=== PATIENT | male | born 1970 | race Caucasian/White ===

== ENCOUNTER 2017-10-02 22:47 | Inpatient (IN) ==
--- NOTE | 2017-10-02 22:54 | Emergency Department Note ---
Disposition Clinical Impression: UTI (urinary tract infection) Qualifiers: Urinary tract infection type: site unspecified Hematuria presence: without hematuria Qualified Code(s): N39.0 - Urinary tract infection, site not specified Acute renal failure Qualifiers: Acute renal failure type: unspecified Qualified Code(s): N17.9 - Acute kidney failure, unspecified Disposition: Admitted As Inpatient Condition: Fair Time of Disposition: 03:12 General Adult HPI - General Chief complaint: ED Recheck/Abnormal Lab/Rx Stated complaint: upper right quadrant pain Time Seen by Provider: 10/02/17 22:53 Source: patient Mode of arrival: ambulatory Limitations: no limitations Nursing Notes Reviewed: Yes Vital Signs Reviewed: Yes - History of Present Illness HPI Narrative: Patient is a 47-year-old male with past medical history of recent kidney stones. He presented today as a referral from primary care physician due to concern for acute kidney injury. Patient states that he passed a kidney stone within the past 2 weeks. He had a CT scan that showed remaining right inferior pole nonobstructing 5 mm stone. He states that he has had intermittent pain in the right upper quadrant and right flank for the past month, occasional nausea and vomiting, occasional diarrhea. Denies any fevers, dysuria, hematuria, chest pain, shortness of breath, change in bowel habits.. He had basic labs drawn by primary care physician today, primary care physician called with concern for creatinine now in the 6 range, previous was in 1's range. GFR was 11. Pain Scale: 5 - Related Data Home Medications Medication Instructions Recorded Confirmed Aripiprazole [Abilify] 5 mg PO 10/28/15 Gabapentin [Neurontin] 300 mg PO HS 10/28/15 10/28/15 lamoTRIgine [Lamictal] 100 mg PO HS 10/28/15 10/28/15 Previous Rx's Medication Instructions Recorded Ibuprofen [Motrin] 400 mg PO Q8HR #30 tablet 10/28/15 Naproxen [Naprosyn] 500 mg PO BID PRN #20 tablet 04/26/16 Clindamycin [Cleocin] 150 mg PO Q6HR #7 capsule 09/21/16 Ibuprofen [Motrin] 800 mg PO Q8HR #30 tablet 09/21/16 OxyCODONE Immed Rel [Roxicodone 5 5 mg PO Q4HR PRN #24 tablet 07/28/17 MG] Cephalexin [Keflex] 500 mg PO TID #30 capsule 08/07/17 HYDROcodone/Acet 5/325 mg [[place] 1 tab PO Q4H PRN 2 Days #10 tab 08/07/17 5-325 mg] Hyoscyamine SL [Levsin SL] 0.125 mg SL Q4HR #30 tab.subl 08/07/17 Tamsulosin HCl [Flomax] 0.4 mg PO DAILY #5 cap.er.24h 08/07/17 Citalopram Hydrobromide [Celexa] 10 mg PO DAILY #14 tab 08/20/17 Allergies Allergy/AdvReac Type Severity Reaction Status Date / Time Amoxicillin AdvReac Hives Verified 10/02/17 22:54 Penicillins AdvReac Hives Verified 10/02/17 22:54 All systems ED: reviewed and negative except as stated. Constitutional: Denies: fever Cardiovascular: Denies: chest pain Gastrointestinal: Reports: abdominal pain, nausea, vomiting Genitourinary: Denies: urgency, dysuria, frequency, hematuria, discharge Musculoskeletal: Reports: back pain (right flank pain) Neurological: Denies: headache, weakness, numbness Past Medical History - Past Medical History Attestation: Yes The following information was validated with the patient. Source: patient Medical history: Reports: arthritis Psychiatric history: Reports: anxiety, bipolar, depression - Social History Smoking Status: Current every day smoker Smokeless Tobacco Status: No Alcohol use: Reports: none Drug use: Reports: none Physical Exam - General Limitations: no limitations General appearance: alert, in no apparent distress - Head Head exam: atraumatic, normocephalic, normal inspection - Eye Eye exam: Present: normal appearance, PERRL, EOMI - ENT ENT exam: normal exam, normal oropharynx, mucous membranes moist - Neck Neck exam: Present: normal inspection, full ROM, trachea midline - Chest Chest inspection: Present: normal inspection, symmetric chest wall rise - Respiratory Respiratory exam: Present: normal lung sounds bilaterally - Cardiovascular Cardiovascular exam: Present: regular rate, normal rhythm, normal heart sounds - Abdominal Exam Abdominal exam: Present: soft, tenderness (mild RUQ and LUQ tenderness). Absent : distention, guarding, rebound, rigidity, Hollingsworth's sign, Rovsing's sign, tenderness at McBurney's Point - Extremities Exam Extremities exam: Present: normal inspection, full ROM. Absent: tenderness, pedal edema - Neurological Exam Neurological exam: Present: alert, oriented X3 - Psychiatric Psychiatric exam: Present: normal affect, normal mood - Skin Skin exam: Present: warm, dry, intact, normal color Course Course Narrative: Patient was mildly hypertensive. Otherwise, the rest of the vitals within normal limits. Physical exam showed mild right upper quadrant and left upper quadrant tenderness. Otherwise, the rest of the physical exam was fairly benign. Labs are being repeated at this time. Urinalysis shows possible UTI. KUB showed no definite calculus. Patient was given normal saline bolus. 03:12 KUB showed no definite radiopaque calculus. CT abdomen and pelvis was discussed with the patient, discussed radiation risks, he was agreeable with obtaining CT scan for reevaluation of right sided kidney stone. There is a calculus in the right kidney without hydronephrosis or distal calculi. Repeat labs here show creatinine of 6.8. Potassium within normal limits at this time, no need for stat dialysis. We will need to admit the patient for further care for acute renal failure, nephrology consult, fluids. Urinalysis also shows possible UTI. Patient started on Rocephin. KUB X-Ray 10/02/17 23:41 IMPRESSION: No definite radiopaque calculus. D/ / Eulogio Greco MD / Eulogio Greco MD Interpreting Provider: Eulogio Greco MD Abdomen/Pelvis CT 10/03/17 01:06 IMPRESSION: 1. Calculus in the right kidney without hydronephrosis or distal calculi. 2. Cholelithiasis without CT evidence for acute cholecystitis. D/ / Eulogio Greco MD / Eulogio Greco MD Interpreting Provider: Eulogio Greco MD X-Ray 10/02/17 23:41 IMPRESSION: No definite radiopaque calculus. D/ / Eulogio Greco MD / Eulogio Greco MD Interpreting Provider: Eulogio Greco MD Vital Signs Temperature 98.1 F 10/02/17 22:48 Pulse Rate 59 10/02/17 22:48 Respiratory Rate 19 10/02/17 22:48 Blood Pressure 139/72 10/02/17 22:48 O2 Sat by Pulse Oximetry 96 10/02/17 22:48 Temperature 98.2 F 10/03/17 04:15 Pulse Rate 55 10/03/17 04:15 Respiratory Rate 16 10/03/17 04:15 Blood Pressure 135/75 10/03/17 04:15 O2 Sat by Pulse Oximetry 99 10/03/17 04:15 Oxygen Delivery Oxygen Delivery Room Air Medical Decision Making - MDM Narrative Medical decision making narrative: Patient was mildly hypertensive. Otherwise, the rest of the vitals within normal limits. Physical exam showed mild right upper quadrant and left upper quadrant tenderness. Otherwise, the rest of the physical exam was fairly benign. Labs are being repeated at this time. Urinalysis shows possible UTI. KUB showed no definite calculus. Patient was given normal saline bolus. 03:12 KUB showed no definite radiopaque calculus. CT abdomen and pelvis was discussed with the patient, discussed radiation risks, he was agreeable with obtaining CT scan for reevaluation of right sided kidney stone. There is a calculus in the right kidney without hydronephrosis or distal calculi. Repeat labs here show creatinine of 6.8. Potassium within normal limits at this time, no need for stat dialysis. We will need to admit the patient for further care for acute renal failure, nephrology consult, fluids. Urinalysis also shows possible UTI. Patient started on Rocephin. - Medical Records Medical records reviewed: Yes I reviewed the patient's medical records. - Lab Data Lab results reviewed: Yes I reviewed the patient's lab results. Result diagrams: 10/02/17 23:01 10/02/17 23:01 Lab Results 10/02/17 10/02/17 10/03/17 Range/Units 23:01 23:01 00:11 WBC 15.1 H (4.3-11.1) K/mcL RBC 3.95 L (4.19-5.50) M/mcL Hgb 12.2 L (12.9-16.9) g/dL Hct 34.9 L (37.5-50.1) % MCV 88.4 (83.0-100.0) fL MCH 30.9 (28.0-33.3) pg MCHC 35.0 (31.6-35.5) g/dL RDW 12.5 (11.5-14.5) % Plt Count 233 (140-400) K/mcL MPV 12.8 H (9.4-12.4) fL Immature Gran % 0.4 (0-4) % Seg Neutrophils % 74.0 % Lymphocytes % 18.2 % Monocytes % 5.4 % Eosinophils % 1.6 % Basophils % 0.4 % Neutrophils # 11.2 H (1.6-8.9) K/mcL Lymphocytes # 2.8 (0.6-4.6) K/mcL Monocytes # 0.8 (0.0-1.3) K/mcL Eosinophils # 0.2 (0.0-0.6) K/mcL Basophils # 0.1 (0.0-0.2) K/mcL Sodium 135 L (136-145) mEq/L Potassium 3.5 (3.5-5.1) mEq/L Chloride 106 (98-107) mEq/L Carbon Dioxide 17 L (23-29) mEq/L BUN 59 H (6-20) mg/dL Creatinine 6.80 H (0.70-1.30) mg/dL Est GFR ( Amer) 11 L (> 60) Est GFR (Non-Af Amer) 9 L (> 60) BUN/Creatinine Ratio 9 (6-26) Glucose 87 (70-105) mg/dL Calculated Osmolality 296 (280-300) Calcium 9.6 (8.6-10.3) mg/dL Urine Color Yellow (Yellow) Urine Clarity Cloudy A (Clear) Urine pH 6.0 (5.0-8.0) pH Units Ur Specific [place] < 1.005 L (1.010-1.025) Urine Protein Trace (Neg-Trace) mg/dL Urine Glucose (UA) Normal (Normal) mg/dL Urine Ketones Negative (Negative) mg/dL Urine Blood Small H (Negative) Urine Nitrite Negative (Negative) Urine Bilirubin Negative (Negative) Urine Urobilinogen Normal (Normal) mg/dL Ur Leukocyte Esterase Large H (Negative) Urine Microscopic RBC 0-3 (0-3) per hpf Urine Microscopic WBC 3-5 H (0-3) per hpf Ur Squamous Epith Cells Moderate H (None-Few) per lpf Urine Bacteria Few (None-Few) per hpf Ur Culture Indicated? YES A (NO) - Radiology Data Radiology results reviewed: Yes I reviewed the patient's radiology results. KUB X-Ray 10/02/17 23:41 IMPRESSION: No definite radiopaque calculus. D/ / Eulogio Greco MD / uElogio Greco MD Interpreting Provider: Eulogio Greco MD Abdomen/Pelvis CT 10/03/17 01:06 IMPRESSION: 1. Calculus in the right kidney without hydronephrosis or distal calculi. 2. Cholelithiasis without CT evidence for acute cholecystitis. D/ / Eulogio Greco MD / Eulogio Greco MD Interpreting Provider: Eulogio Greco MD S.B.A.R. - S.B.A.R. Situation: Demographics, MOA Background: Presenting Complaint, Relevant PMH, Meds, & Allergies Assessment: Vital Signs, Course and respsone to treatment, Exam Concerns, Patient/Family Expectation, Pertinant Lab Results Recommendation: Barrier(s) to disposition, Recommendation based on pending studies, treatments, or consults S.B.A.R. Report Given to: Dr. troncoso Attestation Statement - Attestation Attestation: I, Rajeev Roland, examined this patient and my medical decision-making was reviewed with the FLIGHT MECHANIC/PA/Advanced Practice Nurse/Resident Physician. I agree with the documented findings, disposition and treatment plan as described except to the extent set forth below. 47-year-old presents emergency department for further evaluation of possible acute renal failure. Patient had a history of recent kidney stone, he had outpatient laboratory testing done by his primary care provider is not significant elevation in his creatinine. Patient has some mild abdominal pain during the examination however he is resting comfortably in emergency department. Laboratory results were repeated and he again had elevation of his creatinine. CT did not show evidence of acute urinary obstruction. Patient will be admitted to the hospital for further care and evaluation of his acute renal failure.
[2017-10-02] MEDS ORDERED: 0.9 % Sodium Chloride 1,000 ML IVC ONE (23:21)
[2017-10-03 00:22] LABS: Bilirubin,Urine Negative (Negative); Blood,Urine Small (Negative); Clarity,Urine Cloudy (Clear); Color,Urine Yellow (Yellow); Glucose,Urine (UA) Normal (Normal); Ketones,Urine Negative (Negative); Leukocyte Esterase,Urine Large (Negative); Nitrite,Urine Negative (Negative); Protein,Urine Trace mg/dL (Neg-Trace); Specific Gravity,Urine < 1.005 (1.010-1.025); Urobilinogen,Urine Normal (Normal)
[2017-10-03 00:34] LABS: RBC,Urine 0-3 per hpf (0-3)
[2017-10-03 00:35] LABS: Bacteria,Urine Few per hpf (None-Few); Squamous Epithelial Cell,Urine Moderate per lpf (None-Few)
[2017-10-03 01:20] LABS: Basophils # 0.1 K/mcL (0.0-0.2); Basophils % 0.4 %; Eosinophils # 0.2 K/mcL (0.0-0.6); Eosinophils % 1.6 %; Hematocrit 34.9 % (37.5-50.1); Hemoglobin 12.2 g/dL (12.9-16.9); Immature Granulocytes % 0.4 % (0-4); Lymphocytes # 2.8 K/mcL (0.6-4.6); Lymphocytes % 18.2 %; Mean Corpuscular Hemoglobin 30.9 pg (28.0-33.3); Mean Corpuscular Volume 88.4 fL (83.0-100.0); Mean Platelet Volume 12.8 fL (9.4-12.4); Monocytes # 0.8 K/mcL (0.0-1.3); Monocytes % 5.4 %; Neutrophils # 11.2 K/mcL (1.6-8.9); Platelet Count 233 K/mcL (140-400); Red Blood Count 3.95 M/mcL (4.19-5.50); Red Cell Distribution Width 12.5 % (11.5-14.5)
[2017-10-03 01:30] LABS: Calcium 9.6 mg/dL (8.6-10.3); Potassium 3.5 mEq/L (3.5-5.1)
[2017-10-03] MEDS ORDERED: cefTRIAXone 1,000 MG in Water for inj. (sterile) 20 ML 10 ML IVP ONE (03:11)
[2017-10-03] MEDS ORDERED: 0.9 % Sodium Chloride 1,000 ML IVC ONE (03:21)
[2017-10-03] MEDS ORDERED: 0.9 % Sodium Chloride 1,000 ML IVC SCH (03:30)
[2017-10-03] MEDS: 0.9 % Sodium Chloride 1,000 ML IVC SCH ×5 (03:43→20:01)
[2017-10-03] MEDS ORDERED: Naloxone 0.4 MG/ML INJ IVP PRN (05:14)
--- NOTE | 2017-10-03 05:57 | Internal Med History&Physical ---
Date of Encounter: 10/03/17 Time of Encounter: 05:30 Internal Medicine - H&P: HPI Chief complaint: abnormal lab History of present illness: Mr. Naylor is a 47 year old male with past medical history of nephrolithiasis presented to the ED after being referred by his primary care physician due to abnormal serum creatinine level. His baseline creatinine is around 1.1 but it was noted to be elevated at 6.75 this morning on outpatient lab. He has no specific complaints, denies any fever/chills, N/V, abdominal pain , dysuria, hematuria, or change in bowel habits. No recent medication change or IV contrast use. Denies frequent use of NSAIDs. 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 Denies decrease in urination, frequency, hesistancy, or dribbling. No joint pain or new rash. In the ED, he was afebrile and hemodynamically stable. Labs again demonstrated elevated creatinine of 6.8 with BUN 59. White blood cell count was elevated at 15.1 and urinalysis showed large amount of leukocyte esterase. He was given 2 L of IV fluid boluses, IV Rocephin, and admitted for further management. Past Med Surg Social Fam HX - Past Medical History Medical history: arthritis, kidney stones Additional medical history: Degenerative Disk Psychiatric history: anxiety, bipolar, depression - Past Surgical History Additional surgical history: teeth extraction, R shoulder athroscopy - Social History Smoking Status: Current every day smoker Smokeless Tobacco Status: No Alcohol use: none Drug use: none Internal Medicine - H&P: Meds Aripiprazole [Abilify] 5 mg PO 10/28/15 [History] Gabapentin [Neurontin] 300 mg PO HS 10/28/15 [History] Ibuprofen [Motrin] 400 mg PO Q8HR #30 tablet 10/28/15 [Rx] lamoTRIgine [Lamictal] 100 mg PO HS 10/28/15 [History] Naproxen [Naprosyn] 500 mg PO BID PRN #20 tablet 04/26/16 [Rx] Clindamycin [Cleocin] 150 mg PO Q6HR #7 capsule 09/21/16 [Rx] Ibuprofen [Motrin] 800 mg PO Q8HR #30 tablet 09/21/16 [Rx] OxyCODONE Immed Rel [Roxicodone 5 MG] 5 mg PO Q4HR PRN #24 tablet 09/21/16 [Rx] Cephalexin [Keflex] 500 mg PO TID #30 capsule 08/07/17 [Rx] HYDROcodone/Acet 5/325 mg [[place] 5-325 mg] 1 tab PO Q4H PRN 2 Days #10 tab 08/07 [Rx] Hyoscyamine SL [Levsin SL] 0.125 mg SL Q4HR #30 tab.subl 08/07/17 [Rx] Tamsulosin HCl [Flomax] 0.4 mg PO DAILY #5 cap.er.24h 08/07/17 [Rx] Citalopram Hydrobromide [Celexa] 10 mg PO DAILY #14 tab 08/20/17 [Rx] 3 Allergy/AdvReac Type Severity Reaction Status Date / Time Amoxicillin AdvReac Hives Verified 10/02/17 22:54 Penicillins AdvReac Hives Verified 10/02/17 22:54 All Systems PM: A 10-system review of systems was performed and is negative for pertinent findings except as documented above in the HPI. - Constitutional Vitals: Temp Pulse Resp BP Pulse Ox 98.2 F 55 16 135/75 99 10/03/17 04:15 10/03/17 04:15 10/03/17 04:15 10/03/17 04:15 10/03/17 04:15 Exam: General: Alert and oriented HEENT:EOM, pupils equal, round, and reactive. Cardiovascular:Normal S1 & S2, no murmurs or gallops. No JVD. Pulse regular. Lungs:Normal breath sounds, no wheezes or crackles. Abdomen:Soft, non-tender, no rigidity. Extremities:No deformity, no edema or tenderness, no joint swelling. Neurological:Normal cognition and motor skills. Skin:Normal color, no rash, no lesions. Pulses:Carotid and radial pulses normal +2. 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 but he also drinks good amount of water continue IVF, repeat BMP later in the afternoon send urine Na, Cr for FeNA calculation urine eosinophils Check CPK treat for UTI in the setting of LOR although he does not endorse much symptoms nephrology consult placed in the ED Qualifiers: Acute renal failure type: unspecified Qualified Code(s): N17.9 - Acute kidney failure, unspecified (2) UTI (urinary tract infection) Current Visit: Yes Status: Acute Assessment and plan: IV Rocephin Qualifiers: Urinary tract infection type: site unspecified Hematuria presence: without hematuria Qualified Code(s): N39.0 - Urinary tract infection, site not specified (3) Nephrolithiasis Current Visit: Yes Status: Chronic Assessment and plan: Nonobstructing (4) DVT prophylaxis Current Visit: Yes Status: Acute Assessment and plan: SCD - Time Spent With Patient Total time spent is greater than 50% in coordination of care (as documented) at patient's floor/unit and/or counseling patient:
--- NOTE | 2017-10-03 09:14 | Nephrology Consult Note ---
Date of Encounter: 10/03/17 Time of Encounter: 09:01 Assessment and Plan (1) Acute renal failure Current Visit: Yes Status: Acute Initial serum creatinine 6.75 is now 6.8. GFR is 9. Continue IV fluids. Renal dose all medications and avoid nephrotoxins. Strict I&O. Retroperitoneal ultrasound ordered. Serum and urine labs ordered. Encouraged adequate by mouth intake. Qualifiers: Acute renal failure type: unspecified Qualified Code(s): N17.9 - Acute kidney failure, unspecified (2) UTI (urinary tract infection) Current Visit: Yes Status: Acute per primary. Qualifiers: Urinary tract infection type: site unspecified Hematuria presence: without hematuria Qualified Code(s): N39.0 - Urinary tract infection, site not specified (3) Nephrolithiasis Current Visit: Yes Status: Chronic Nonobstructing. History of Present Illness - Reason for Consult Consult date: 10/03/17 Acute Kidney Injury - Chief Complaint LOR per PCP - History of Present Illness Mr. Naylor is a 47-year-old male with a past medical history of nephrolithiasis. He presented to the ED after being referred by his PCP for an elevated serum creatinine. Baseline is approximately 1.1 and it was noted to be 6.75 with the outpatient labs the PCP ordered. Denies fever, chills, nausea , vomiting, and diarrhea. Denies chest pain, shortness of breath. He did pass a kidney stone approximately a week ago and has since been voiding fine. Denies hematuria, flank pain, or dysuria. 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 He does drink often approximately 8-9 bottles of water a shift. He has never seen a glazier apprentice in the past and has never been told he has CKD. He also denies FH of kidney disease or HD. Does admit to taking 2-3 pills of either Naproxen or Aleve twice a day (daily) for chronic back pain. He states he alternates the brands weekly but does take at least 2 doses a day every day. He does drink quite a bit of caffeine nearly 4-5 cans of Pepsi a day. He does smoke 1 1/2 PPD, denies alcohol or illegal drug use. He does live at home with family. LOR is most likely pre-renal and related to dehydration. NS @ 250/hr infusing now. Retroperitoneal ultrasound ordered. Urine and serum labs ordered to rule out other processes. Past Med Surg Social Fam HX - Past Medical History Medical history: arthritis, kidney stones Additional medical history: Degenerative Disk Psychiatric history: anxiety, bipolar, depression - Past Surgical History Additional surgical history: teeth extraction, R shoulder athroscopy - Social History Smoking Status: Current every day smoker Smokeless Tobacco Status: No Alcohol use: none Drug use: none Medications and Allergies Aripiprazole [Abilify] 5 mg PO 10/28/15 [History] Gabapentin [Neurontin] 300 mg PO HS 10/28/15 [History] Ibuprofen [Motrin] 400 mg PO Q8HR #30 tablet 10/28/15 [Rx] lamoTRIgine [Lamictal] 100 mg PO HS 10/28/15 [History] Naproxen [Naprosyn] 500 mg PO BID PRN #20 tablet 04/26/16 [Rx] Clindamycin [Cleocin] 150 mg PO Q6HR #7 capsule 09/21/16 [Rx] Ibuprofen [Motrin] 800 mg PO Q8HR #30 tablet 09/21/16 [Rx] OxyCODONE Immed Rel [Roxicodone 5 MG] 5 mg PO Q4HR PRN #24 tablet 09/21/16 [Rx] Cephalexin [Keflex] 500 mg PO TID #30 capsule 08/07/17 [Rx] HYDROcodone/Acet 5/325 mg [[place] 5-325 mg] 1 tab PO Q4H PRN 2 Days #10 tab 08/07 [Rx] Hyoscyamine SL [Levsin SL] 0.125 mg SL Q4HR #30 tab.subl 08/07/17 [Rx] Tamsulosin HCl [Flomax] 0.4 mg PO DAILY #5 cap.er.24h 08/07/17 [Rx] Citalopram Hydrobromide [Celexa] 10 mg PO DAILY #14 tab 08/20/17 [Rx] 3 Allergy/AdvReac Type Severity Reaction Status Date / Time Amoxicillin AdvReac Hives Verified 10/02/17 22:54 Penicillins AdvReac Hives Verified 10/02/17 22:54 Review of Systems ROS unobtainable: other (as per HPI) Exam - Vital Signs Vital signs: Initial Vital Signs Temp Pulse Resp BP Pulse Ox 98.1 F 59 19 139/72 96 10/02/17 22:48 10/02/17 22:48 10/02/17 22:48 10/02/17 22:48 10/02/17 22:48 Vital Signs - Last 8 Hours Temp Pulse Resp BP Pulse Ox 10/03/17 07:33 98.0 F 54 19 118/70 96 Intake and Output 10/02/17 10/03/17 10/03/17 23:59 07:59 15:59 Intake Total 1000 / 1000 Balance 1000 / 1000 Intake: IV Fluids 1000 / 1000 0.9 % Sodium Chloride 1,000 ML 1000 / 1000 @ 250 mls/hr IVC .Q4H [facility] Rx#: [id number] - General Appearance General appearance: well-developed, well-nourished EENT: ATNC, hearing intact, vision intact Neck: supple Respiratory: clear Cardiology: no edema, normal S1, normal S2 Gastrointestinal: normoactive bowel sounds, no tenderness, no guarding Integumentary: no rash, warm and dry Neurologic: alert and oriented x3 Psychiatric: mood/affect appropriate, cooperative Results - Lab Results 10/02/17 23:01 10/02/17 23:01 Most recent lab results Calcium 9.6 mg/dL (8.6-10.3) 10/02/17 23:01 Consult Discharge Plan - Plan Referrals: Rajeev Barajas [Primary Care Provider] -
[2017-10-03 10:02] LABS: Uric Acid 5.8 mg/dL (2.3-7.6)
[2017-10-03] MEDS: Nicotine 21 MG PATCH.TD24 TD SCH (10:27)
[2017-10-03 11:31] LABS: Calcium 8.8 mg/dL (8.6-10.3); Potassium 3.3 mEq/L (3.5-5.1)
[2017-10-03 13:43] LABS: Calcium 8.7 mg/dL (8.6-10.3); Potassium 3.6 mEq/L (3.5-5.1)
--- NOTE | 2017-10-03 15:07 | Internal Med Progress Note ---
<AimeCourtney Talon - Last Filed: 10/03/17 17:02> Hospitalist Progress Note - Encounter Date of Encounter: 10/03/17 Time of Encounter: 09:00 - Subjective Interval History: Hospital day 1, Mr. Naylor is a 47 year old male being treated for acute kidney injury and urinary tract infection. Currently, he complains of constant dull abdominal pain, in RUQ, RLQ and RLQ. He also complains CVA tenderness bilaterally. He states that the pain is 3/10 and increases to sharp and stabbing when he moves. He also complains of headache at base of skull which is at baseline and denies any neurological signs or symptoms. He denies any fever or chills, chest pain, shortness of breath, dysuria or frequency, diarrhea or constipation at this time. He states that he has had nausea and vomiting for the past month since last kidney stone, but it seems to have resolved at time of interview. - Exam Vitals: Temp Pulse Resp BP Pulse Ox 97.7 F 54 18 118/74 95 10/03/17 11:36 10/03/17 07:33 10/03/17 11:36 10/03/17 11:36 10/03/17 11:36 Exam: General: Resting comfortably, in no acute distress, AAOx3, pleasant HEENT: Normocephalic, atraumatic, EOMI, PERRL, mucus membranes moist. Neck supple, trachea midline, no cervical lymphadenopathy. Cardio: RRR, no murmurs, rubs or gallops. Normal S1, S2. No carotid bruits. Pulmonary: No wheezes, rales or rhonchi. No accessory respiratory muscle use. Abdomen: Tenderness to palpation in RUQ, LUQ, RLQ as well as CVA tenderness bilaterally. Positive Hollingsworth sign in RUQ, tenderness in RLQ diffuse and doesn' t localize to McBurney's point. No suprapubic tenderness. Soft, non distended , normal bowel sounds, no guarding, rebound or rigidity. Extremities: Radial and dorsal pedis pulses 2+ and symmetrical, normal capillary refill, no clubbing. No peripheral edema or calf tenderness. Neuro: CN 2-12 intact, no focal deficits. Psych: Normal mood and affect, answers questions appropriately - Assessment and Plan (1) Acute kidney injury Current Visit: Yes Status: Acute Assessment and Plan: Creatinine on admission 6.8, baseline 1.1. GFR of 9. Was started on IV fluids, and repeat labs after 3 L normal saline showed minimal improvement of creatinine now 6.44 and unchanged GFR at 9. History of NSAID use for headache History of nephrolithiasis mid August 2017. 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 CT abdomen/pelvis: 10/02/17 Calculus in the right kidney without hydronephrosis or distal calculi. Cholelithiasis without CT evidence for acute cholecystitis. Continue IV fluids Strict I&O's retroperitoneal U/S pending monitor kidney function closely renal diet (2) UTI (urinary tract infection) Current Visit: Yes Status: Acute Assessment and Plan: History of nephrolithiasis in August 2017, second stone is non obstructing in right inferior pole of kidney U/A positive for blood, leukocyte esterase, WBC, squamous epithelial cells and few bacteria WBC 15.1 Rocephin day 1 Urine culture pending (3) Nephrolithiasis Current Visit: Yes Status: Chronic Assessment and Plan: History of nephrolithiasis in mid August 2017 CT scan shows calculus in right kidney without hydronephrosis. 5mm, non obstructing (4) Nausea Current Visit: Yes Status: Acute Assessment and Plan: States that nausea has improved since starting IV fluids History of nausea and vomiting 2x per day for past month UTI vs Cholelithiasis vs GERD vs nephrolithiasis Review of outpatient labs on 10/02/17 show slight elevation in alkaline phosphatase, normal AST, ALT, lipase Will monitor for improvement with fluid replacement and rocephin for UTI. DVT Prophylaxis: SQ Heparin - Time Spent with Patient Total time spent is greater than 50% in coordination of care (as documented) at patient's floor/unit and/or counseling patient: Internal Medicine: Result - Labs CBC & Chem 7: 10/02/17 23:01 10/03/17 13:06 Labs: BMP 10/03/17 10/03/17 09:25 13:06 Sodium 141 141 Potassium 3.3 L 3.6 Chloride 113 H 112 H Carbon Dioxide 20 L 22 L BUN 60 H 62 H Creatinine 6.62 H 6.44 H Glucose 135 H 125 H Calcium 8.8 8.7 Consult Discharge Plan - Plan Referrals: Rajeev Barajas [Primary Care Provider] - <Remy Bergman - Last Filed: 10/03/17 19:14> Hospitalist Progress Note - Encounter Date of Encounter: 10/03/17 - Exam Vitals: Temp Pulse Resp BP Pulse Ox 98.8 F 70 19 120/66 94 10/03/17 16:28 10/03/17 16:28 10/03/17 16:28 10/03/17 16:28 10/03/17 16:28 - Assessment and Plan (1) UTI (urinary tract infection) Current Visit: Yes Status: Acute (2) Acute renal failure Current Visit: Yes Status: Acute (3) Nephrolithiasis Current Visit: Yes Status: Chronic (4) DVT prophylaxis Current Visit: Yes Status: Acute - Time Spent with Patient Total time spent is greater than 50% in coordination of care (as documented) at patient's floor/unit and/or counseling patient: Internal Medicine: Result - Labs CBC & Chem 7: 10/02/17 23:01 10/03/17 13:06 Labs: BMP 10/03/17 10/03/17 09:25 13:06 Sodium 141 141 Potassium 3.3 L 3.6 Chloride 113 H 112 H Carbon Dioxide 20 L 22 L BUN 60 H 62 H Creatinine 6.62 H 6.44 H Glucose 135 H 125 H Calcium 8.8 8.7 - Attending Attestation Mr Naylor was admitted earlier today with acute renal failure. He has been receiving IV fluids. Appreciate renal input. Agree with assessment and plan as above. <Courtney Salomon - Last Filed: 10/03/17 17:02> (2) UTI (urinary tract infection) Qualifiers: Urinary tract infection type: site unspecified Hematuria presence: with hematuria Qualified Code(s): N39.0 - Urinary tract infection, site not specified; R31.9 - Hematuria, unspecified <Remy Bergman - Last Filed: 10/03/17 19:14> (1) UTI (urinary tract infection) Qualifiers: Urinary tract infection type: site unspecified Hematuria presence: with hematuria Qualified Code(s): N39.0 - Urinary tract infection, site not specified; R31.9 - Hematuria, unspecified (2) Acute renal failure Qualifiers: Acute renal failure type: unspecified Qualified Code(s): N17.9 - Acute kidney failure, unspecified
[2017-10-03] MEDS: ARIPiprazole 10 MG TABLET PO SCH (15:27)
[2017-10-03] MEDS: Gabapentin 100 MG CAPSULE PO SCH ×2 (15:28→20:01)
[2017-10-03] MEDS: *HR* Heparin 5,000 UNIT/ML VIAL SQ SCH (17:01)
[2017-10-03 22:30] LABS: Sodium, Urine 39.6 mEq/L
[2017-10-03 22:31] LABS: Protein/Creatinine Ratio,Urine 0.65 mg/mg (0.00-0.20)
[2017-10-04 05:32] LABS: Basophils # 0.1 K/mcL (0.0-0.2); Basophils % 0.5 %; Eosinophils # 0.3 K/mcL (0.0-0.6); Eosinophils % 2.4 %; Hematocrit 32.8 % (37.5-50.1); Immature Granulocytes % 0.4 % (0-4); Lymphocytes # 3.2 K/mcL (0.6-4.6); Lymphocytes % 25.2 %; Mean Corpuscular HGB Conc 33.5 g/dL (31.6-35.5); Mean Corpuscular Hemoglobin 30.1 pg (28.0-33.3); Mean Corpuscular Volume 89.9 fL (83.0-100.0); Monocytes # 0.9 K/mcL (0.0-1.3); Monocytes % 7.2 %; Neutrophils # 8.2 K/mcL (1.6-8.9); Platelet Count 194 K/mcL (140-400); Red Blood Count 3.65 M/mcL (4.19-5.50); Segmented Neutrophils % 64.3 %
[2017-10-04 05:46] LABS: Albumin 3.3 g/dL (3.5-5.7); Albumin/Globulin Ratio 1.2 (1.1-2.2); Bilirubin,Total 0.3 mg/dL (0.3-1.0); Calcium 8.7 mg/dL (8.6-10.3); Globulin 2.8 g/dL (2.4-3.5); Magnesium 1.8 mg/dL (1.6-2.6); Potassium 4.1 mEq/L (3.5-5.1); Total Protein 6.1 g/dL (6.4-8.9)
[2017-10-04] MEDS: *HR* Heparin 5,000 UNIT/ML VIAL SQ SCH ×2 (06:00→16:16)
[2017-10-04] MEDS: 0.9 % Sodium Chloride 1,000 ML IVC SCH ×3 (06:00→20:47)
[2017-10-04] MEDS: Nicotine 21 MG PATCH.TD24 TD SCH (07:24)
[2017-10-04] MEDS: cefTRIAXone 1,000 MG in Water for inj. (sterile) 20 ML 10 ML IVP SCH (07:24)
[2017-10-04] MEDS: Gabapentin 100 MG CAPSULE PO SCH ×3 (07:24→20:47)
[2017-10-04] MEDS: ARIPiprazole 10 MG TABLET PO SCH (07:24)
--- NOTE | 2017-10-04 08:23 | Nephrology Progress Note ---
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 Renal ultrasound shows: Increased echogenicity of the kidneys which can be seen with medical renal disease. Stone seen on today's CT is not appreciated on ultrasound. Nonspecific debris seen layering within the bladder. Correlate with urinalysis. Urine culture final report is negative, no significant growth (2) Nephrolithiasis Current Visit: Yes Status: Chronic Nonobstructing Subjective Principal diagnosis: LOR Interval history: Patient seen and examined. States he no longer is having any nausea or abdominal pain. Objective - Vital Signs Vital signs: Vital Signs Temp Pulse Resp BP Pulse Ox 10/04/17 08:11 98.5 F 95 20 129/77 97 10/04/17 07:28 98 10/04/17 04:25 97.9 F 50 16 113/73 98 10/03/17 23:04 98.2 F 54 16 100/62 98 10/03/17 16:28 98.8 F 70 19 120/66 94 10/03/17 11:36 97.7 F 18 118/74 95 Intake and Output 10/03/17 10/04/17 10/04/17 23:59 07:59 15:59 Intake Total 1000 / 1000 1000 / 1000 Output Total 900 / 900 Balance 100 / 100 1000 / 1000 Intake: IV Fluids 1000 / 1000 1000 / 1000 0.9 % Sodium Chloride 1,000 ML 1000 / 1000 1000 / 1000 @ 250 mls/hr IVC .Q4H [facility] Rx#: [id number] Output: Urine 900 / 900 Other: Weight 93.6 kg Patient Weight 10/04/17 23:59 Weight 93.6 kg - General Appearance General appearance: Present: well-developed, well-nourished EENT: Present: ATNC, mucous membranes moist, hearing intact, vision intact Neck: Present: supple Respiratory: Present: clear Cardiology: Present: no edema, normal S1, normal S2 Gastrointestinal: Present: no tenderness, no guarding Integumentary: Present: warm and dry Neurologic: Present: alert and oriented x3 Psychiatric: Present: mood/affect appropriate, cooperative - Lab 10/04/17 04:51 10/04/17 04:51 Most recent lab results Calcium 8.7 mg/dL (8.6-10.3) 10/04/17 04:51 Magnesium 1.8 mg/dL (1.6-2.6) 10/04/17 04:51 Urine Creatinine 40 mg/dL 10/03/17 11:45 Urine Sodium 39.6 mEq/L 10/03/17 11:45 Urine Total Protein 26 mg/dL (1-14) H 10/03/17 11:45 Consult Discharge Plan - Plan Referrals: Rajeev Barajas [Primary Care Provider] -
--- NOTE | 2017-10-04 15:28 | Internal Med Progress Note ---
<AimeCourtney Talon - Last Filed: 10/04/17 16:29> Hospitalist Progress Note - Encounter Date of Encounter: 10/04/17 Time of Encounter: 08:00 - Subjective Interval History: Hospital day 2, Mr. Naylor states that the abdominal pain has lessened somewhat today but the pain around his right CVA has increased in severity to 5/ 10. He states that he had one episode of vomiting last night after dinner. He denies nausea, fever, chills, chest pain, shortness of breath weakness, dizziness, dysuria, frequency, or blood in urine. 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 He states that all materials he works with are in the solid state, and no chemicals are involved. - Exam Vitals: Temp Pulse Resp BP Pulse Ox 97.8 F 50 18 134/77 97 10/04/17 11:42 10/04/17 11:42 10/04/17 11:42 10/04/17 11:42 10/04/17 11:42 Exam: General: Resting comfortably, in no acute distress, AAOx3, pleasant HEENT: Normocephalic, atraumatic, EOMI, PERRL, mucus membranes moist. Neck soft , supple, trachea midline, no cervical lymphadenopathy. Cardio: RRR, no murmurs, rubs or gallops. Normal S1, S2. No carotid bruits. Pulmonary: No wheezes, rales or rhonchi. No accessory respiratory muscle use. Abdomen: Tenderness to palpation at RUQ and RLQ, decreased since yesterday. CVA tenderness on right side, increased since yesterday. Soft, non distended, normal bowel sounds, no guarding, rebound or rigidity. No suprapubic tenderness. Extremities: Radial and dorsal pedis pulses 2+ and symmetrical, normal capillary refill, no clubbing. No peripheral edema or calf tenderness. Neuro: CN 2-12 intact, no focal deficits. 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 GFR is 9. Baseline creatinine 1.1. Serum creatinine only slightly improved, currently at 6.36 Retroperitoneal ultrasound 10/03/17: Kidneys demonstrate mildly increased cortical echogenicity which can be seen in the setting of medical renal disease. No evidence of hydronephrosis or intrarenal stones. Stone noted on todays CT is not appreciated on ultrasound. Bladder shows nonspecific debris layering within the bladder. Total input while admitted is 4L, Urine output 900 mL. Will continue to monitor Nephro recs: no need for urgent dialysis at this time, continue IV fluids 0.9% NS Continue to monitor kidney function and electrolytes. Renal diet (2) UTI (urinary tract infection) Current Visit: Yes Status: Acute Assessment and Plan: U/A shows cloudy, small blood, large leukocyte esterase, WBC 3-5 H, squamous epithelial cells moderate H, bacteria few Urine culture 10/04/17: No significant growth Rocephin day 2, will continue for 3 doses. (3) Nephrolithiasis Current Visit: Yes Status: Chronic Assessment and Plan: Passed kidney stone in mid August 2017 Non obstructing, 5mm in right inferior pole currently seen on CT. (4) Nausea Current Visit: Yes Status: Acute Assessment and Plan: Improved. States that nausea is controlled, one episode of vomiting last night. Will continue to monitor for improvement (5) Tobacco dependence Current Visit: Yes Status: Acute Assessment and Plan: Currently smokes 1 ppd Continue nicotine patch 21 mg DVT Prophylaxis: SQ heparin - Time Spent with Patient Total time spent is greater than 50% in coordination of care (as documented) at patient's floor/unit and/or counseling patient: 25 - 35 minutes Internal Medicine: Result - Labs CBC & Chem 7: 10/04/17 04:51 10/04/17 04:51 Labs: Short CBC 10/04/17 Range/Units 04:51 WBC 12.7 H (4.3-11.1) K/mcL Hgb 11.0 L (12.9-16.9) g/dL Hct 32.8 L (37.5-50.1) % Plt Count 194 (140-400) K/mcL Neutrophils # 8.2 (1.6-8.9) K/mcL BMP 10/04/17 04:51 Sodium 143 Potassium 4.1 Chloride 117 H Carbon Dioxide 20 L BUN 57 H Creatinine 6.36 H Glucose 93 Calcium 8.7 Liver Function 10/04/17 Range/Units 04:51 Total Bilirubin 0.3 (0.3-1.0) mg/dL AST 11 L (13-39) Units/L ALT 14 (7-52) Units/L Alkaline Phosphatase 97 (34-104) Units/L Albumin 3.3 L (3.5-5.7) g/dL - Impressions Impressions Retroperitoneum Ultrasound 10/03/17 18:00 IMPRESSION: Increased echogenicity of the kidneys which can be seen with medical renal disease. Stone seen on today's CT is not appreciated on ultrasound. Nonspecific debris seen layering within the bladder. Correlate with urinalysis. D/ / Chu Hernandez MD / Chu Hernandez MD Interpreting Provider: Chu Hernandez MD Consult Discharge Plan - Plan Referrals: Rajeev Barajas [Primary Care Provider] - <Remy Bergman - Last Filed: 10/04/17 18:07> Hospitalist Progress Note - Encounter Date of Encounter: 10/04/17 - Exam Vitals: Temp Pulse Resp BP Pulse Ox 98.0 F 60 19 130/80 99 10/04/17 16:51 10/04/17 16:51 10/04/17 16:51 10/04/17 16:51 10/04/17 16:51 - Assessment and Plan (1) UTI (urinary tract infection) Current Visit: Yes Status: Acute (2) Acute renal failure Current Visit: Yes Status: Suspected (3) Nephrolithiasis Current Visit: Yes Status: Chronic (4) DVT prophylaxis Current Visit: Yes Status: Acute (5) Tobacco abuse Current Visit: Yes Status: Chronic - Time Spent with Patient Total time spent is greater than 50% in coordination of care (as documented) at patient's floor/unit and/or counseling patient: Internal Medicine: Result - Labs CBC & Chem 7: 10/04/17 04:51 10/04/17 04:51 Labs: Short CBC 10/04/17 Range/Units 04:51 WBC 12.7 H (4.3-11.1) K/mcL Hgb 11.0 L (12.9-16.9) g/dL Hct 32.8 L (37.5-50.1) % Plt Count 194 (140-400) K/mcL Neutrophils # 8.2 (1.6-8.9) K/mcL BMP 10/04/17 04:51 Sodium 143 Potassium 4.1 Chloride 117 H Carbon Dioxide 20 L BUN 57 H Creatinine 6.36 H Glucose 93 Calcium 8.7 Liver Function 10/04/17 Range/Units 04:51 Total Bilirubin 0.3 (0.3-1.0) mg/dL AST 11 L (13-39) Units/L ALT 14 (7-52) Units/L Alkaline Phosphatase 97 (34-104) Units/L Albumin 3.3 L (3.5-5.7) g/dL - Impressions Impressions Retroperitoneum Ultrasound 10/03/17 18:00 IMPRESSION: Increased echogenicity of the kidneys which can be seen with medical renal disease. Stone seen on today's CT is not appreciated on ultrasound. Nonspecific debris seen layering within the bladder. Correlate with urinalysis. D/ / Chu Hernandez MD / Chu Hernandez MD Interpreting Provider: Chu Hernandez MD - Attending Attestation I examined this patient and my medical decision-making was reviewed with the Resident Physician on 10/04/17. I agree with the documented findings, disposition and treatment plan as described except to the extent set forth below. Mr Naylor is currently admitted for acute renal failure most likely prerenal. He remains moderate to high risk due to potential for worsening clinical status. Mr Naylor is resting comfortably at this time. Creatinine about the same. No fever or chills. No CP or SOB. Exam alert Comfortable Mucus membranes dry Heart distant No wheeze abd soft I/P 1. Acute renal failure due to ATN 2. Probable UTI - will do 3 days IV abx Further diagnoses and plan as above. <Courtney Salomon - Last Filed: 10/04/17 16:29> (2) UTI (urinary tract infection) Qualifiers: Urinary tract infection type: site unspecified Hematuria presence: with hematuria Qualified Code(s): N39.0 - Urinary tract infection, site not specified <Remy Bergman - Last Filed: 10/04/17 18:07> (1) UTI (urinary tract infection) Qualifiers: Urinary tract infection type: acute cystitis Hematuria presence: with hematuria Qualified Code(s): N30.01 - Acute cystitis with hematuria (2) Acute renal failure Qualifiers: Acute renal failure type: with acute tubular necrosis Qualified Code(s): N17.0 - Acute kidney failure with tubular necrosis
[2017-10-04] MEDS ORDERED: Acetaminophen 325 MG TABLET PO PRN (16:30)
[2017-10-05 04:42] LABS: Basophils # 0.1 K/mcL (0.0-0.2); Basophils % 0.5 %; Eosinophils # 0.3 K/mcL (0.0-0.6); Eosinophils % 2.5 %; Hematocrit 35.7 % (37.5-50.1); Hemoglobin 12.1 g/dL (12.9-16.9); Immature Granulocytes % 0.3 % (0-4); Lymphocytes # 2.5 K/mcL (0.6-4.6); Lymphocytes % 24.9 %; Mean Corpuscular HGB Conc 33.9 g/dL (31.6-35.5); Mean Corpuscular Hemoglobin 30.6 pg (28.0-33.3); Mean Corpuscular Volume 90.4 fL (83.0-100.0); Mean Platelet Volume 11.9 fL (9.4-12.4); Monocytes # 0.6 K/mcL (0.0-1.3); Monocytes % 5.9 %; Neutrophils # 6.6 K/mcL (1.6-8.9); Platelet Count 207 K/mcL (140-400); Red Blood Count 3.95 M/mcL (4.19-5.50); Red Cell Distribution Width 13.1 % (11.5-14.5); Segmented Neutrophils % 65.9 %
[2017-10-05 05:00] LABS: Calcium 8.9 mg/dL (8.6-10.3); Potassium 3.8 mEq/L (3.5-5.1)
[2017-10-05] MEDS: *HR* Heparin 5,000 UNIT/ML VIAL SQ SCH ×2 (05:38→17:21)
[2017-10-05] MEDS: Gabapentin 100 MG CAPSULE PO SCH ×3 (07:25→20:42)
[2017-10-05] MEDS: Nicotine 21 MG PATCH.TD24 TD SCH (07:25)
[2017-10-05] MEDS: ARIPiprazole 10 MG TABLET PO SCH (07:25)
[2017-10-05] MEDS: cefTRIAXone 1,000 MG in Water for inj. (sterile) 20 ML 10 ML IVP SCH (07:26)
[2017-10-05] MEDS: 0.9 % Sodium Chloride 1,000 ML IVC SCH ×2 (07:26→17:22)
[2017-10-05] MEDS: Acetaminophen 325 MG TABLET PO PRN (07:36)
--- NOTE | 2017-10-05 09:33 | Nephrology Progress Note ---
Date of Encounter: 10/05/17 Time of Encounter: 10:05 - Assessment and Plan (1) Acute kidney injury Current Visit: Yes Status: Acute Continues to slowly improve. No need for CRITICAL CARE NURSE. Last night I slowed the rate of the IVF as he's developed a hyperchloremic NAGMA though no appreciable edema. He was taking XS OTC NSAIDs, and was severely prerenal, and developed a UTI, all of which likely induced ATN. Asymptomatic without hyperkalemia. Continue to follow a renal protective strategy Will follow with you. (2) Nephrolithiasis Current Visit: Yes Status: Chronic Nonobstructing (3) NSAID long-term use Current Visit: Yes Status: Acute contributed to his ATN (4) UTI (urinary tract infection) Current Visit: Yes Status: Acute per primary Qualifiers: Urinary tract infection type: acute cystitis Hematuria presence: with hematuria Qualified Code(s): N30.01 - Acute cystitis with hematuria Subjective Principal diagnosis: LOR Interval history: Pt was sleeping, thus limiting the subjective history. Objective - Vital Signs Vital signs: Vital Signs Temp Pulse Resp BP Pulse Ox 10/05/17 07:10 98.1 F 50 17 125/78 98 10/05/17 04:07 98.9 F 60 16 125/76 99 10/05/17 00:22 98.8 F 50 16 123/72 98 10/04/17 18:40 98.3 F 56 16 126/75 98 10/04/17 16:51 98.0 F 60 19 130/80 99 10/04/17 11:42 97.8 F 50 18 134/77 97 Intake and Output 10/04/17 10/05/17 10/05/17 23:59 07:59 15:59 Intake Total 1000 / 1000 240 / 240 Output Total 3600 / 3600 2600 / 2600 Balance -3600 / -3600 -1600 / -1600 240 / 240 Intake: IV Fluids 1000 / 1000 0.9 % Sodium Chloride 1,000 ML 1000 / 1000 @ 100 mls/hr IVC .Q10H [facility] Rx#: [id number] Oral 240 / 240 Output: Urine 3600 / 3600 2600 / 2600 Other: Meal Breakfast Percent of Meal Consumed 90% # Voids 3 Weight 94.619 kg Patient Weight 10/05/17 23:59 Weight 94.619 kg - General Appearance General appearance: Present: appears started age, obese (appears comfortable in no acute distress) EENT: Present: ATNC Respiratory: Present: clear Cardiology: Present: no edema, regular rate, normal S1, normal S2 Gastrointestinal: Present: normoactive bowel sounds. Absent: distended Integumentary: Present: warm and dry Neurologic: Present: disoriented - Lab 10/05/17 04:16 10/05/17 04:16 Most recent lab results Calcium 8.9 mg/dL (8.6-10.3) 10/05/17 04:16 Magnesium 1.8 mg/dL (1.6-2.6) 10/04/17 04:51 Urine Creatinine 40 mg/dL 10/03/17 11:45 Urine Sodium 39.6 mEq/L 10/03/17 11:45 Urine Total Protein 26 mg/dL (1-14) H 10/03/17 11:45 Consult Discharge Plan - Plan Referrals: Rajeev Braajas [Primary Care Provider] -
--- NOTE | 2017-10-05 18:27 | Internal Med Progress Note ---
<AimeCourtney Talon - Last Filed: 10/05/17 18:41> Hospitalist Progress Note - Encounter Date of Encounter: 10/05/17 Time of Encounter: 11:00 - Subjective Interval History: Hospital day 3, Mr. Naylor states that his abdominal pain has completely resolved. He states that his right CVA discomfort is still present but decreasing in severity. He states that he has increasing appetite and denies any nausea or vomiting. He denies any fever, chills, chest pain, shortness of breath, diarrhea, constipation, dysuria, frequency or calf pain. - Exam Vitals: Temp Pulse Resp BP Pulse Ox 97.9 F 51 16 118/71 97 10/05/17 16:35 10/05/17 16:35 10/05/17 16:35 10/05/17 16:35 10/05/17 16:35 Exam: General: Resting comfortably, in no acute distress, AAOx3, pleasant HEENT: Normocephalic, atraumatic, EOMI, PERRL, mucus membranes moist. Neck soft , supple, trachea midline, no cervical lymphadenopathy. Cardio: RRR, no murmurs, rubs or gallops. Normal S1, S2. No carotid bruits. Pulmonary: No wheezes, rales or rhonchi. No accessory respiratory muscle use. Abdomen: CVA tenderness to palpation on right CVA. Soft, non tender, non distended, normal bowel sounds, no guarding, rebound or rigidity. No suprapubic tenderness. Extremities: Radial and dorsal pedis pulses 2+ and symmetrical, normal capillary refill, no clubbing. No peripheral edema or calf tenderness. Neuro: CN 2-12 intact, no focal deficits. Psych: Normal mood and affect, answers questions appropriately - Assessment and Plan (1) Acute kidney injury Current Visit: Yes Status: Acute Assessment and Plan: Kidney function has begun to improve most likely secondary to chronic NSAID use, dehydration and UTI On admission serum creatinine 6.75. GFR is 9. Baseline creatinine 1.1. Creatinine today was 5.5, while GFR was 11 and BUN at 54. Per nephro: decreased rate of IV fluids due to hyperchloremic non anion gap metabolic acidosis. Urine output continues to increase Renal diet Acetaminophen for pain Continue to monitor (2) UTI (urinary tract infection) Current Visit: Yes Status: Acute Assessment and Plan: Positive U/A on admission Urine culture has returned with no significant growth Completed treatment with rocephin for 3 days Will follow up outpatient to ensure resolution of infection (3) Nephrolithiasis Current Visit: Yes Status: Chronic Assessment and Plan: Stable. Passed kidney stone in mid August 2017 Non obstructing, 5mm in right inferior pole currently seen on CT. Denies any increasing CVA tenderness or groin pain. (4) Nausea Current Visit: Yes Status: Acute (5) Tobacco abuse Current Visit: Yes Status: Chronic Assessment and Plan: Continue nicotine patch Assess readiness to quit smoking DVT Prophylaxis: SQ heparin - Time Spent with Patient Total time spent is greater than 50% in coordination of care (as documented) at patient's floor/unit and/or counseling patient: Internal Medicine: Result - Labs CBC & Chem 7: 10/05/17 04:16 10/05/17 04:16 Labs: Short CBC 10/05/17 Range/Units 04:16 WBC 10.0 (4.3-11.1) K/mcL Hgb 12.1 L (12.9-16.9) g/dL Hct 35.7 L (37.5-50.1) % Plt Count 207 (140-400) K/mcL Neutrophils # 6.6 (1.6-8.9) K/mcL BMP 10/05/17 04:16 Sodium 145 Potassium 3.8 Chloride 117 H Carbon Dioxide 18 L BUN 54 H Creatinine 5.50 H Glucose 108 H Calcium 8.9 Consult Discharge Plan - Plan Referrals: Rajeev Barajas [Primary Care Provider] - <Remy Bergman - Last Filed: 10/05/17 19:41> Hospitalist Progress Note - Encounter Date of Encounter: 10/05/17 - Exam Vitals: Temp Pulse Resp BP Pulse Ox 98 F 50 16 137/56 98 10/05/17 19:18 10/05/17 19:18 10/05/17 19:18 10/05/17 19:18 10/05/17 19:18 - Assessment and Plan (1) UTI (urinary tract infection) Current Visit: Yes Status: Acute (2) Acute renal failure Current Visit: Yes Status: Suspected (3) Nephrolithiasis Current Visit: Yes Status: Chronic (4) DVT prophylaxis Current Visit: Yes Status: Acute (5) Tobacco abuse Current Visit: Yes Status: Chronic - Time Spent with Patient Total time spent is greater than 50% in coordination of care (as documented) at patient's floor/unit and/or counseling patient: Internal Medicine: Result - Labs CBC & Chem 7: 10/05/17 04:16 10/05/17 04:16 Labs: Short CBC 10/05/17 Range/Units 04:16 WBC 10.0 (4.3-11.1) K/mcL Hgb 12.1 L (12.9-16.9) g/dL Hct 35.7 L (37.5-50.1) % Plt Count 207 (140-400) K/mcL Neutrophils # 6.6 (1.6-8.9) K/mcL BMP 10/05/17 04:16 Sodium 145 Potassium 3.8 Chloride 117 H Carbon Dioxide 18 L BUN 54 H Creatinine 5.50 H Glucose 108 H Calcium 8.9 - Attending Attestation I examined this patient and my medical decision-making was reviewed with the Resident Physician on 10/05/17. I agree with the documented findings, disposition and treatment plan as described except to the extent set forth below. Mr Naylor is currently admitted for acute renal failure. He remains moderate to high risk due to potential for worsening clinical status. Mr Naylor is feeling OK. No fever or chills. No CP or SOB. Renal function improving slowly. Exam alert Comfortable Mucus membranes dry Heart reg No wheeze abd soft No edema I/P 1. ARF 2. HTN Further diagnoses and plan as above. <Courtney Salomon - Last Filed: 10/05/17 18:41> (2) UTI (urinary tract infection) Qualifiers: Urinary tract infection type: acute cystitis Hematuria presence: with hematuria Qualified Code(s): N30.01 - Acute cystitis with hematuria <Remy Bergman - Last Filed: 10/05/17 19:41> (1) UTI (urinary tract infection) Qualifiers: Urinary tract infection type: acute cystitis Hematuria presence: with hematuria Qualified Code(s): N30.01 - Acute cystitis with hematuria (2) Acute renal failure Qualifiers: Acute renal failure type: with acute tubular necrosis Qualified Code(s): N17.0 - Acute kidney failure with tubular necrosis
[2017-10-06] MEDS: 0.9 % Sodium Chloride 1,000 ML IVC SCH (03:06)
[2017-10-06] MEDS: Acetaminophen 325 MG TABLET PO PRN ×2 (04:40→19:18)
[2017-10-06] MEDS: *HR* Heparin 5,000 UNIT/ML VIAL SQ SCH ×2 (05:36→15:56)
[2017-10-06 05:44] LABS: Calcium 9.1 mg/dL (8.6-10.3); Potassium 3.8 mEq/L (3.5-5.1)
[2017-10-06] MEDS: Gabapentin 100 MG CAPSULE PO SCH ×3 (07:52→20:10)
[2017-10-06] MEDS: ARIPiprazole 10 MG TABLET PO SCH (07:52)
[2017-10-06] MEDS: Nicotine 21 MG PATCH.TD24 TD SCH (07:52)
--- NOTE | 2017-10-06 08:08 | Nephrology Progress Note ---
Date of Encounter: 10/06/17 Time of Encounter: 08:07 - Assessment and Plan (1) Acute kidney injury Current Visit: Yes Status: Acute Continues to slowly improve in terms of renal function with a non-oliguric LOR. No indications for [employer]. He was taking XS OTC NSAIDs, and was severely prerenal, and developed a UTI, all of which likely induced ATN. Asymptomatic without hyperkalemia. Okay to d/c from a nephro perspective. Would recommend BMP in about 3-7 days after discharge with Nephro follow up in the clinic in about 2-4 weeks. Continue to follow a renal protective strategy. He may be at risk for CKD give the severity and duration of this LOR, which I explained to the pt. Thank you. (2) Nephrolithiasis Current Visit: Yes Status: Chronic Noted on renal U/S. I had counseled him for >50% of the encounter to avoid soda pop, and to aim for UOP of about 2L per day. He may need an outpatient LithoLink 24hr urine to assess for guidance on dietary modifications and/or Rx for renal stone prophylaxis. (3) NSAID long-term use Current Visit: Yes Status: Acute To avoid going forward. (4) UTI (urinary tract infection) Current Visit: Yes Status: Resolved As per primary. Qualifiers: Urinary tract infection type: acute cystitis Hematuria presence: with hematuria Qualified Code(s): N30.01 - Acute cystitis with hematuria Subjective Principal diagnosis: LOR Interval history: Pt was s/e and reported feeling well without N/V/D or F/C. His and child were in the room with him. He voiced hope to d/c soon. Objective - Vital Signs Vital signs: Vital Signs Temp Pulse Resp BP Pulse Ox 10/06/17 07:21 97.8 F 55 16 134/71 98 10/06/17 03:53 98.5 F 54 15 111/67 97 10/06/17 00:07 98.6 F 54 14 117/72 100 10/05/17 19:18 98 F 50 16 137/56 98 10/05/17 16:35 97.9 F 51 16 118/71 97 10/05/17 11:44 97.7 F 54 17 114/69 97 Intake and Output 10/05/17 10/06/17 10/06/17 23:59 07:59 15:59 Intake Total 1290 / 1290 2000 / 2000 Output Total 3000 / 3000 2500 / 2500 Balance -1710 / -1710 -500 / -500 Intake: IV Fluids 1000 / 1000 1000 / 1000 0.9 % Sodium Chloride 1,000 ML 1000 / 1000 1000 / 1000 @ 100 mls/hr IVC .Q10H SHIREEN Rx#: [id number] Oral 290 / 290 1000 / 1000 Output: Urine 3000 / 3000 2500 / 2500 Other: Meal Dinner Percent of Meal Consumed 100% Weight 93.531 kg Patient Weight 10/06/17 23:59 Weight 93.531 kg - General Appearance General appearance: Present: well-developed, well-nourished, appears started age EENT: Present: ATNC, PERRL, mucous membranes moist Neck: Present: supple Respiratory: Present: clear Cardiology: Present: no murmurs, no edema, regular rate, regular rhythm, normal S1, normal S2 Gastrointestinal: Present: normoactive bowel sounds, no tenderness, no guarding Integumentary: Present: no rash, warm and dry Neurologic: Present: no focal deficit, no asterixis, alert and oriented x3 Musculoskeletal: Present: no deformities, no erythema, no cyanosis Psychiatric: Present: mood/affect appropriate, cooperative - Lab 10/05/17 04:16 10/06/17 04:47 Most recent lab results Calcium 9.1 mg/dL (8.6-10.3) 10/06/17 04:47 Magnesium 1.8 mg/dL (1.6-2.6) 10/04/17 04:51 Urine Creatinine 40 mg/dL 10/03/17 11:45 Urine Sodium 39.6 mEq/L 10/03/17 11:45 Urine Total Protein 26 mg/dL (1-14) H 10/03/17 11:45 Consult Discharge Plan - Plan Referrals: Rajeev Barajas [Primary Care Provider] -
[2017-10-06] MEDS ORDERED: Ondansetron ODT 4 MG TAB.RAPDIS SL PRN (10:32)
--- NOTE | 2017-10-06 12:54 | Internal Med Progress Note ---
<AimeCourtney Talon - Last Filed: 10/06/17 13:15> Hospitalist Progress Note - Encounter Date of Encounter: 10/06/17 Time of Encounter: 08:00 - Subjective Interval History: Today, hospital day 3, Mr. Naylor states that his headache has resolved, he denies abdominal pain, and states that the right CVA pain is still present. He also admits to nausea occurring about 1 hour after breakfast but no vomiting. A cough is now present, when questioned he states that he has a chronic smoker' s cough that happens intermittently. He denies fever, chills, chest pain, shortness of breath, vomiting, abdominal pain, calf pain, or parathesias. - Exam Vitals: Temp Pulse Resp BP Pulse Ox 98.0 F 68 16 128/78 100 10/06/17 11:40 10/06/17 11:40 10/06/17 11:40 10/06/17 11:40 10/06/17 11:40 Exam: General: Resting comfortably, in no acute distress, AAOx3, pleasant HEENT: Normocephalic, atraumatic, EOMI, PERRL, mucus membranes moist. Neck soft , supple, trachea midline, no cervical lymphadenopathy. Cardio: RRR, no murmurs, rubs or gallops. Normal S1, S2. No carotid bruits. Pulmonary: Rales present in bilateral lung bases, no wheezes or rhonchi. No accessory respiratory muscle use. Abdomen: Right sided CVA tenderness present. Soft, non tender, non distended, normal bowel sounds, no guarding, rebound or rigidity. Extremities: Radial and dorsal pedis pulses 2+ and symmetrical, normal capillary refill, no clubbing. No peripheral edema or calf tenderness. Neuro: CN 2-12 intact, no focal deficits. 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 GFR is 9. Baseline creatinine 1.1. Creatinine currently trending down, is at 4.66 today. Urine output increasing, today was 4100 mL Decreased rate of IV fluids to reduce volume overload, patient had a non productive cough and bilateral rales on exam Continue to monitor kidney function, volume status. (2) UTI (urinary tract infection) Current Visit: Yes Status: Acute Assessment and Plan: Improved U/A positive for UTI on admission Urine culture final read of no significant growth Completed 3 days rocephin (3) Nephrolithiasis Current Visit: Yes Status: Chronic Assessment and Plan: Stable Passed kidney stone in mid August 2017 Non obstructing, 5mm in right inferior pole currently seen on CT (4) Nausea Current Visit: Yes Status: Acute Assessment and Plan: Present for past month since first nephrolithiasis Most likely secondary to uremia Seems to be improving as kidney function resolves Will continue to monitor Zofran PRN (5) Tobacco abuse Current Visit: Yes Status: Chronic Assessment and Plan: Chronic Nicotine patch - Time Spent with Patient Total time spent is greater than 50% in coordination of care (as documented) at patient's floor/unit and/or counseling patient: Internal Medicine: Result - Labs CBC & Chem 7: 10/05/17 04:16 10/06/17 04:47 Labs: BMP 10/06/17 04:47 Sodium 144 Potassium 3.8 Chloride 114 H Carbon Dioxide 22 L BUN 49 H Creatinine 4.66 H Glucose 96 Calcium 9.1 Consult Discharge Plan - Plan Referrals: Rajeev Barajas [Primary Care Provider] - <Remy Bergman - Last Filed: 10/06/17 18:41> Hospitalist Progress Note - Encounter Date of Encounter: 10/06/17 - Exam Vitals: Temp Pulse Resp BP Pulse Ox 97.6 F 51 16 121/76 98 10/06/17 16:14 10/06/17 16:14 10/06/17 16:14 10/06/17 16:14 10/06/17 16:14 - Assessment and Plan (1) UTI (urinary tract infection) Current Visit: Yes Status: Resolved (2) Acute renal failure Current Visit: Yes Status: Suspected (3) Nephrolithiasis Current Visit: Yes Status: Chronic (4) DVT prophylaxis Current Visit: Yes Status: Acute (5) Tobacco abuse Current Visit: Yes Status: Chronic - Time Spent with Patient Total time spent is greater than 50% in coordination of care (as documented) at patient's floor/unit and/or counseling patient: Internal Medicine: Result - Labs CBC & Chem 7: 10/05/17 04:16 10/06/17 04:47 Labs: BMP 10/06/17 04:47 Sodium 144 Potassium 3.8 Chloride 114 H Carbon Dioxide 22 L BUN 49 H Creatinine 4.66 H Glucose 96 Calcium 9.1 - Attending Attestation I examined this patient and my medical decision-making was reviewed with the Resident Physician on 10/06/17. I agree with the documented findings, disposition and treatment plan as described except to the extent set forth below. Mr Naylor is currently admitted for acute renal failure. He remains moderate to high risk due to potential for worsening clinical status. Mr Naylor is doing OK. He is up walking. His creatinine is slowly improving with fluids. No fever or chills. No GI issues. Exam alert Comfortable Mucus membranes dry Heart reg No wheeze Abd soft I/P 1. ARF Further diagnoses and plan as above. <Courtney Salomon - Last Filed: 10/06/17 13:15> (2) UTI (urinary tract infection) Qualifiers: Urinary tract infection type: acute cystitis Hematuria presence: with hematuria Qualified Code(s): N30.01 - Acute cystitis with hematuria <Remy Bergman - Last Filed: 10/06/17 18:41> (1) UTI (urinary tract infection) Qualifiers: Urinary tract infection type: acute cystitis Hematuria presence: with hematuria Qualified Code(s): N30.01 - Acute cystitis with hematuria (2) Acute renal failure Qualifiers: Acute renal failure type: with acute tubular necrosis Qualified Code(s): N17.0 - Acute kidney failure with tubular necrosis
[2017-10-07] MEDS: 0.9 % Sodium Chloride 1,000 ML IVC SCH (03:19)
[2017-10-07 05:41] LABS: Calcium 9.1 mg/dL (8.6-10.3); Potassium 3.7 mEq/L (3.5-5.1)
[2017-10-07] MEDS: *HR* Heparin 5,000 UNIT/ML VIAL SQ SCH (06:08)
[2017-10-07] MEDS: ARIPiprazole 10 MG TABLET PO SCH (08:27)
[2017-10-07] MEDS: Nicotine 21 MG PATCH.TD24 TD SCH (08:27)
[2017-10-07] MEDS: Gabapentin 100 MG CAPSULE PO SCH (08:27)
[2017-10-07] MEDS: Acetaminophen 325 MG TABLET PO PRN (11:00)
[2017-10-07 11:16] VITALS: BP 128/83
--- NOTE | 2017-10-07 13:10 | Discharge Summary ---
<Courtney Salomon - Last Filed: 10/07/17 13:49> - NOTES TO OUTPATIENT PROVIDER Notes to Outpatient Provider: PCP:Please check U/A for resolution of UTI and BMP to ensure continued improvement of renal function. Nephrology: Please evaluate renal function Date of Encounter: 10/07/17 Time of Encounter: 10:00 - Discharge Diagnosis (1) Acute kidney injury Priority: Primary Status: Acute (2) UTI (urinary tract infection) Priority: Secondary Status: Resolved Qualifiers: Urinary tract infection type: acute cystitis Hematuria presence: with hematuria Qualified Code(s): N30.01 - Acute cystitis with hematuria (3) Nephrolithiasis Priority: Secondary Status: Chronic (4) Nausea Priority: Secondary Status: Acute (5) Tobacco abuse Priority: Secondary Status: Chronic Hospital course: Mr. Naylor is a 47 year old male who was found to have elevated creatinine, BUN and decreased GFR at PCP visit. Concerned for acute kidney injury, Mr. Naylor was instructed to present to [facility] for further evaluation and treatment for acute kidney injury 10/02/17. His history is significant for nephrolithiasis in August 2017, after which he continued to have daily nausea and vomiting leading to a dehydrated state, as well as chronic use of NSAID for back and neck pain. 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 Upon arrival to the emergency department, his labs revealed serum creatinine 6.75. GFR is 9. Baseline creatinine 1.1. Imaging was done, CT abdomen/pelvis revealed a calculus in the right kidney without hydronephrosis or distal calculi. Cholelithiasis without CT evidence for acute cholecystitis. Retroperitoneal ultrasound revealed a mildly increased cortical echogenicity without hydronephrosis as well as nonspecific debris within the bladder. U/A was positive for urinary tract infection. Mr. Naylor was started on aggressive IV fluid for rehydration and treatment of prerenal acute kidney injury. He was treated with rocephin for 3 days for the UTI. His renal function has slowly improved and nausea has resolved. He was advised to maintain adequate hydration , stop all NSAID use and follow up with PCP in one week to recheck BMP and U/A as well as follow up with nephrology in two weeks. Discharge discussed with: patient Time spent discussing smoking cessation with patient: more than 10 minutes - Time Spent with Patient Total time spent providing and/or coordinating discharge services: Greater than 30 minutes (36) - Discharge Medications Home Medications: Aripiprazole [Abilify] 20 mg PO DAILY 10/03/17 [History] Gabapentin [Neurontin] 400 mg PO BID 10/03/17 [History] Multivitamin [One Daily Multivitamin] 1 tab PO DAILY 10/03/17 [History] Omeprazole [PriLOSEC] 20 mg PO DAILY 10/03/17 [History] Allergies/Adverse Reactions: 3 Allergy/AdvReac Type Severity Reaction Status Date / Time Amoxicillin AdvReac Hives Verified 10/03/17 10:32 Penicillins AdvReac Hives Verified 10/03/17 10:32 Date of admission: 10/03/17 05:14 Primary care physician: Rajeev Barajas Discharging clinician: Courtney Salomon Anticipated date of discharge: 10/07/17 - Constitutional Vitals: Temp Pulse Resp BP Pulse Ox 97.5 F L 53 16 128/83 99 10/07/17 11:14 10/07/17 11:14 10/07/17 11:14 10/07/17 11:14 10/07/17 11:14 General appearance: Present: A&O X 3, pleasant, no acute distress, answers questions appropriately Exam: Pleasant - Head Head exam: Present: atraumatic, normocephalic - Eye Eye exam: Present: PERRL, conjuntiva pink, sclera anicteric Pupils: Present: PERRL - Neck Neck exam general surgery: Present: supple, trachea midline. Absent: lymphadenopathy, tenderness, thyromegaly - Respiratory Respiratory exam: Present: CTAB. Absent: accessory muscle use, rales, rhonchi, wheezes - Cardiovascular Cardiovascular exam: Present: RRR, +S1, +S2. Absent: diastolic murmur, gallop, rubs, systolic murmur - GI/Abdominal GI/Abdominal exam: Present: normal bowel sounds, soft, no peritoneal signs. Absent: distended, tenderness - Expanded GI/Abdominal Exam GI/Abdominal exam expanded: Absent: Hollingsworth's sign, tenderness at McBurney's Point - Extremities Exam Extremities exam: Present: normal capillary refill, warm, radial pulses palpable and symmetrical. Absent: calf tenderness, cyanotic, pedal edema - Neurological Exam Neurological exam: Present: CN II-XII intact, oriented X3, no focal deficits. Absent: pronater drift, facial droop, speech deficit - Skin Skin exam: Present: dry, intact - Patient Status Disposition: Home, Self-Care Condition: Fair Functional capacity at discharge: independent ambulation Overall status at discharge: patient is progressing back to baseline - Discharge Instructions Follow Up With: Rajeev Barajas [Primary Care Provider] - 10/09/17 9:00 am (With Dr Salomon Have your physician recheck BMP in one week.) Dawson Anna, [Partnered Physician] - ( Please follow up in 2 weeks The office will call you to set up an appointment.) Forms: Inpatient Work/School Release Additional Instructions: Please check U/A for resolution of UTI and BMP to ensure continued improvement of renal function. - Diet and Activity Activity: increase activity as tolerated Diet: advance to your usual diet <Remy Bergman - Last Filed: 10/07/17 17:14> Date of Encounter: 10/07/17 - Discharge Diagnosis (1) UTI (urinary tract infection) Status: Resolved Qualifiers: Urinary tract infection type: acute cystitis Hematuria presence: with hematuria Qualified Code(s): N30.01 - Acute cystitis with hematuria (2) Acute renal failure Priority: Primary Status: Suspected Qualifiers: Acute renal failure type: with acute tubular necrosis Qualified Code(s): N17.0 - Acute kidney failure with tubular necrosis (3) Nephrolithiasis Status: Chronic (4) Tobacco abuse Status: Chronic (5) Dehydration Priority: Secondary Status: Resolved (6) NSAID long-term use Priority: Secondary Status: Acute (7) Nausea Status: Acute Hospital course: Mr. Naylor is a 47 year old male - Time Spent with Patient Total time spent providing and/or coordinating discharge services: 39min Date of admission: 10/03/17 05:14 Primary care physician: Rajeev Barajas - Constitutional Vitals: Temp Pulse Resp BP Pulse Ox 97.5 F L 53 16 128/83 99 10/07/17 11:14 10/07/17 11:14 10/07/17 11:14 10/07/17 11:14 10/07/17 11:14 - Attending Attestation I examined this patient and my medical decision-making was reviewed with the Resident Physician on 10/07/17. I agree with the documented findings, disposition and treatment plan as described except to the extent set forth below. Mr Naylor has been admitted for acute renal failure. It was felt due to NSAIDS and prerenal conditions. He has been slowly improving with hydration. He is now afebrile and ready for discharge home. He will follow up in outpatient clinic and have renal function rechecked. Exam Alert Comfortable Mucus membranes dry Heart reg No wheeze Abd soft No edema Plan D/C home Follow up as scheduled Further diagnoses and plan as above.
--- NOTE | 2017-10-07 13:27 | Nephrology Progress Note ---
Date of Encounter: 10/07/17 Time of Encounter: 11:30 - Assessment and Plan (1) Acute kidney injury Current Visit: Yes Status: Acute SCr continues to improve at 3.61, GFR 18 but not yet at baseline but suspect continued improvement with adequate po fluids Ok to discharge from a renal standpoint as long as BMP recheck within the week and adequate followup whether with pcp and/or nephro Continue to avoid nephrotoxins if possible especially NSAIDs (2) UTI (urinary tract infection) Current Visit: Yes Status: Resolved As per primary. Qualifiers: Urinary tract infection type: acute cystitis Hematuria presence: with hematuria Qualified Code(s): N30.01 - Acute cystitis with hematuria (3) Nephrolithiasis Current Visit: Yes Status: Chronic (4) NSAID long-term use Current Visit: Yes Status: Acute Subjective Principal diagnosis: LOR Interval history: Interim events noted, pt seen and examined feeling quite good and eager to go home. Objective - Vital Signs Vital signs: Vital Signs Temp Pulse Resp BP Pulse Ox 10/07/17 11:14 97.5 F L 53 16 128/83 99 10/07/17 07:24 97.4 F L 52 15 117/71 100 10/07/17 03:39 98.2 F 55 14 113/72 99 10/06/17 23:45 98.5 F 52 15 122/76 98 10/06/17 19:20 98 10/06/17 19:08 98.3 F 58 15 123/75 98 10/06/17 16:14 97.6 F 51 16 121/76 98 Intake and Output 10/06/17 10/07/17 10/07/17 23:59 07:59 15:59 Intake Total 240 / 240 380 / 380 360 / 360 Output Total 1100 / 1100 3650 / 3650 200 / 200 Balance -860 / -860 -3270 / -3270 160 / 160 Intake: IV Fluids 380 / 380 Oral 240 / 240 360 / 360 Output: Urine 1100 / 1100 3650 / 3650 200 / 200 Other: Meal Dinner Lunch Percent of Meal Consumed 100% 100% # Voids 1 3 1 Weight 92.805 kg - General Appearance General appearance: Present: well-developed, well-nourished EENT: Present: ATNC, mucous membranes moist Neck: Present: no JVD, supple Respiratory: Present: clear Cardiology: Present: no edema, normal S1, normal S2 Gastrointestinal: Present: no tenderness, no guarding Integumentary: Present: warm and dry Neurologic: Present: no focal deficit Musculoskeletal: Present: no deformities Psychiatric: Present: mood/affect appropriate, cooperative - Lab 10/05/17 04:16 10/07/17 04:43 Most recent lab results Calcium 9.1 mg/dL (8.6-10.3) 10/07/17 04:43 Magnesium 1.8 mg/dL (1.6-2.6) 10/04/17 04:51 Urine Creatinine 40 mg/dL 10/03/17 11:45 Urine Sodium 39.6 mEq/L 10/03/17 11:45 Urine Total Protein 26 mg/dL (1-14) H 10/03/17 11:45 Consult Discharge Plan - Plan Referrals: Rajeev Barajas [Primary Care Provider] -
== END 2017-10-07 14:30 | disposition home or self-care (01) | DRG 683 ==
LOC: EMEROO 22:47 → 2ANU 22:47 → SUATTDRO 10-03 05:14
PROVIDERS: ADMIT Family Medicine; ATTEND Internal Medicine

== ENCOUNTER 2021-12-17 01:00 | Observation (INO) ==
[2021-12-17] MEDS ORDERED: *HR* FentaNYL (PF) 100 MCG/2 ML VIAL IVP ONE (01:38)
[2021-12-17 02:05] LABS: Basophils # 0.1 K/mcL (0.0-0.2); Basophils % 0.6 %; Eosinophils # 0.1 K/mcL (0.0-0.6); Hematocrit 44.6 % (37.5-50.1); Immature Granulocytes % 0.3 % (0-4); Lymphocytes # 2.1 K/mcL (0.6-4.6); Lymphocytes % 21.1 %; Mean Corpuscular HGB Conc 33.6 g/dL (31.6-35.5); Mean Corpuscular Hemoglobin 32.1 pg (28.0-33.3); Mean Corpuscular Volume 95.5 fL (83.0-100.0); Mean Platelet Volume 10.9 fL (9.4-12.4); Monocytes # 0.9 K/mcL (0.0-1.3); Neutrophils # 6.8 K/mcL (1.6-8.9); Platelet Count 183 K/mcL (140-400); Red Blood Count 4.67 M/mcL (4.19-5.50); Red Cell Distribution Width 13.5 % (11.5-14.5)
[2021-12-17 02:15] LABS: Bilirubin,Urine Negative (Negative); Blood,Urine Small (Negative); Clarity,Urine Clear (Clear); Color,Urine Light-Yellow (Yellow); Glucose,Urine (UA) Normal (Normal); Ketones,Urine Negative (Negative); Leukocyte Esterase,Urine Negative (Negative); Nitrite,Urine Negative (Negative); Protein,Urine Trace mg/dL (Neg-Trace); Specific Gravity,Urine 1.021 (1.010-1.025); Squamous Epithelial Cell,Urine Few per hpf (None-Few); Urobilinogen,Urine Normal (Normal)
[2021-12-17 02:23] LABS: Alanine Aminotransferase 13 Units/L (7-52); Albumin 4.5 g/dL (3.5-5.7); Albumin/Globulin Ratio 1.4 (1.1-2.2); Alkaline Phosphatase 101 Units/L (34-104); Amylase 23 Units/L (29-103); Aspartate Amino Transferase 14 Units/L (13-39); BUN/Creatinine Ratio 8 (6-26); Bilirubin,Direct 0.1 mg/dL (0.0-0.2); Bilirubin,Indirect 0.6 mg/dL (0.0-1.0); Bilirubin,Total 0.7 mg/dL (0.3-1.0); Blood Urea Nitrogen 13 mg/dL (6-20); Calcium 9.8 mg/dL (8.6-10.3); Carbon Dioxide 29 mEq/L (23-29); Chloride 106 mEq/L (98-107); Globulin 3.2 g/dL (2.4-3.5); Glucose 98 mg/dL (70-105); Lipase 15 Units/L (11-82); Osmolality,Calculated 276 (280-300); Potassium 3.5 mEq/L (3.5-5.1); Sodium 133 mEq/L (136-145); Total Protein 7.7 g/dL (6.4-8.9)
[2021-12-17] MEDS ORDERED: 0.9 % Sodium Chloride 1,000 ML IVC ONE (02:34)
[2021-12-17] MEDS ORDERED: Morphine Sulfate 2 MG/ML SYRINGE IVP ONE (02:34)
[2021-12-17 03:14] LABS: Troponin I < 0.03 ng/mL (< 0.04)
[2021-12-17] MEDS ORDERED: Naloxone 0.4 MG/ML INJ IVP PRN (03:33)
[2021-12-17] MEDS ORDERED: Ondansetron 4 MG/2 ML VIAL IVP PRN (03:44)
[2021-12-17] MEDS: 0.9 % Sodium Chloride 1,000 ML IVC SCH ×2 (04:16→11:00)
[2021-12-17 04:34] LABS: Amphetamine Screen,Urine Negative ng/mL (Cutoff=1000); Barbiturate Screen,Urine Negative ng/mL (Cutoff=200); Benzodiazepines Screen,Urine Negative ng/mL (Cutoff=200); Cannabinoid Screen,Urine Positive ng/mL (Cutoff = 50); Cocaine Screen,Urine Negative ng/mL (Cutoff= 300); Opiate Screen,Urine Negative ng/mL (Cutoff=300); Phencyclidine Screen,Urine Negative ng/mL (Cutoff=25)
[2021-12-17 11:02] LABS: INR 1.1; Prothrombin Time 12.7 Seconds (9.4-12.1)
[2021-12-17] MEDS: Nicotine 14 MG PATCH.TD24 TD SCH (13:18)
[2021-12-18 06:55] LABS: Calcium 9.1 mg/dL (8.6-10.3); Potassium 3.9 mEq/L (3.5-5.1)
[2021-12-18] MEDS: Nicotine 14 MG PATCH.TD24 TD SCH (08:27)
[2021-12-18] MEDS ORDERED: 0.9 % Sodium Chloride 1,000 ML IVC SCH ×2 (10:30→14:21)
[2021-12-18] MEDS ORDERED: Clindamycin 900 MG/50 ML 900 MG/50 ML IV.SOLN IVPB ONE ×2 (11:37→11:39)
[2021-12-18] MEDS ORDERED: Ipratropium/Albuterol Neb 3 ML IH ONE (11:48)
[2021-12-18] MEDS ORDERED: *HR* HYDROmorphone PF 0.5 MG/0.5 ML SYRINGE IVP PRN (11:48)
[2021-12-18] MEDS ORDERED: Naloxone 0.4 MG/ML INJ IVP PRN (11:48)
[2021-12-18] MEDS ORDERED: Ondansetron 4 MG/2 ML VIAL IVP PRN ×2 (11:48→14:21)
[2021-12-18] MEDS ORDERED: *HR* Midazolam HCl 2 MG/2 ML VIAL ONE (12:06)
[2021-12-18] MEDS ORDERED: *HR* FentaNYL (PF) 100 MCG/2 ML VIAL ONE (12:06)
[2021-12-18] MEDS ORDERED: *HR* Propofol 200 MG/20 ML VIAL IVP ONE (12:07)
[2021-12-18] MEDS ORDERED: Lidocaine -MPF 2% 2 ML VIAL ONE (12:07)
[2021-12-18] MEDS ORDERED: Ondansetron 4 MG/2 ML VIAL ONE (12:44)
[2021-12-18] MEDS ORDERED: EPHEDrine sulfate 50 MG/10 ML VIAL IVP ONE (12:52)
[2021-12-18 14:21] VITALS: TEMP 97.5
[2021-12-18 16:07] VITALS: BP 119/72; PULSE 73; O2SAT 93
[2021-12-19] MEDS ORDERED: Nicotine 14 MG PATCH.TD24 TD SCH (09:00)
== END 2021-12-18 17:07 | disposition home or self-care (01) ==
LOC: 3BNU 01:00 → EMEROOARM 01:00 → SUATTDRO 03:00 → 3BNU 03:23
PROVIDERS: ADMIT Internal Medicine; ATTEND Nurse Practitioner